=== PATIENT | female | born 1955 | race African-American/Black ===

== ENCOUNTER 2024-03-05 11:43 | Outpatient (CLI) | payer BC, SELFPAY ==
--- NOTE | ~2024-03-05 | XR_ITS ---
XR hip LT min 2V 03/05/2024 12:17 Indication: Left hip pain after recent fall Procedure: 2 views left hip Comparison: No prior studies for comparison. Findings: There is moderate osteoarthritis of the left hip. No fracture, subluxation or dislocation. There is lower lumbar spondylosis. No soft tissue abnormality. No foreign bodies. Impression: 1: Moderate osteoarthritis of the left hip. Reviewed, dictated and finalized at location B. Impression: 1: Moderate osteoarthritis of the left hip.
== END 2024-03-05 11:44 | disposition home or self-care (01) ==
DX: M16.12 Unilateral primary osteoarthritis, left hip (principal)
CPT/HCPCS: 73502